=== PATIENT | male | born 1960 | race Caucasian/White ===

== ENCOUNTER 2023-01-06 07:10 | Day surgery (SDC) | payer OTHER ==
[~2023-01-06] VITALS: Ht 177.8 cm; Wt 113.4 kg
[~2023-01-06 07:10] MED LIST: ADVAIR DISKU IN; AMLODIPINE BESYL5 MG PO; ATORVASTATIN CA40 MG PO; LOSARTAN POTASS50 MG PO; OMEPRAZOLE DR40 MG PO; VENTOLIN HFA108 MCG PO
[2023-01-06 09:16] VITALS: BP 140/73
== END 2023-01-06 08:45 | disposition home or self-care (01) | DRG 392 ==
LOC: ENDO 07:10 → ORM 13:35
PROVIDERS: ATTEND Internal Medicine Gastroenterology
PROC: 0DBP8ZX Excision of Rectum, Via Natural or Artificial Opening Endoscopic, Diagnostic (ICD-10-PCS; principal; 2023-01-06)
PROC: 0DBE8ZX Excision of Large Intestine, Via Natural or Artificial Opening Endoscopic, Diagnostic (ICD-10-PCS; 2023-01-06)
PROC: 0DB48ZX Excision of Esophagogastric Junction, Via Natural or Artificial Opening Endoscopic, Diagnostic (ICD-10-PCS; 2023-01-06)
PROC: 0DB78ZX Excision of Stomach, Pylorus, Via Natural or Artificial Opening Endoscopic, Diagnostic (ICD-10-PCS; 2023-01-06)
DX: K57.30 Diverticulosis of large intestine without perforation or abscess without bleeding (principal); K64.8 Other hemorrhoids; K62.1 Rectal polyp; K29.70 Gastritis, unspecified, without bleeding; K44.9 Diaphragmatic hernia without obstruction or gangrene